=== PATIENT | female | born 1960 | race Caucasian/White ===

== ENCOUNTER 2016-06-21 15:06 | Emergency (ER) | payer BC ==
--- NOTE | 2016-06-26 16:04 | ER ---
ADMIT: 06/21/2016 RM/LOC: ER [facility] MR#: [id number] [facility] [address] [place] [id number] RADHA LOTT [address] [place] [id number] Emergency Room Report SEX: F AGE: 55 : 1960 DATE: 06/21/2016 BRIEF ADDENDUM: Please see my T-sheet for complete review of systems, past medical history, and physical exam. CHIEF COMPLAINT: Back pain. HISTORY OF PRESENT ILLNESS: This is a pleasant 55-year-old female, who presents to us with a day's duration of some upper back and chest pain. The patient states she underwent a wound debridement yesterday with Dr. Humberto montoya in [place] for some complications of an Achilles tendon repair. She is being followed with Dr. Cristobal for some wound infection, and this has failed to heal over the last couple months. She states that she underwent general anesthesia yesterday and tolerated this well. Upon returning home last night, she began having some upper back pain that she feels radiates anteriorly into her chest. She is in a moderate amount of pain rating it as a 5/10. Worse with movement. Says her Percocet is not controlling this pain. Denies any fever, chills, nausea, vomiting, lightheadedness, dizziness, numbness, or weakness. Does have some shortness of breath when she lays flat. She is currently on Nasalid and Percocet. COURSE IN THE EMERGENCY ROOM: The patient was seen and examined. She is in no acute distress. She is afebrile and nontoxic. She does have a dressing applied to the left foot secondary to the debridement yesterday. She has some tenderness to the upper chest, very mild as well as the upper back posteriorly. Breath sounds are normal bilateral. No wheezes, rales, or rhonchi. No obvious ecchymosis. She does have some tenderness in the paravertebral musculature. Abdomen is soft and nontender. She is neurovascularly intact distally in the extremities. I did get a chest x-ray, negative for any acute process. Basic labs; white count of 15.5, hemoglobin 14.3, hematocrit 44.6, and platelets 226. Sodium 143, potassium 4.1, CO2 of 27, BUN 14, and creatinine 1.0. Liver enzymes within normal limits. I did get a troponin on her, it was less than 0.015. D-dimer was 0.31. Given the fact that her labs look appropriate, no evidence of PE or acute coronary syndrome at this time, I did recommend to continue conservative treatment with anti- inflammatories and muscle relaxers. I thought this was secondary to some operative positioning on the table causing some muscle spasm and tenderness in ADMIT: 06/21/2016 RM/LOC: [facility] MR#: [id number] [address] [place] [id number] OREN RADHA L [address] [place] [address] Emergency Room Report SEX: F AGE: 55 : 1960 her back. IMPRESSION: Chest wall pain. DISPOSITION: The patient was provided a script for Flexeril 5 mg 1 tab p.o. t.i.d. for 5 days as well as naproxen 500 mg p.o. b.i.d. with foods x5 days. She is to apply ice or heat as needed for pain. Follow up with Dr. Cristobal and Dr. Paul as scheduled. Certainly return with any worsening signs or symptoms of high fevers, shortness of breath, chest pain not controlled with her pain medications. Increase fluids. Activity as tolerated. Questions sought and answered to best of my ability and to the patient's satisfaction. Discharged in stable condition. GENIE Saini / Milo Espinal MD / maria de jesus JOB #: [id number] CC: Milo Espinal MD, Attending Physician Gladis Chaudhary MD, Family Physician
== END 2016-06-21 17:40 | disposition home or self-care (01) ==
LOC: ER 15:06
DX: R07.89 Other chest pain (principal); Z90.49 Acquired absence of other specified parts of digestive tract; Z90.710 Acquired absence of both cervix and uterus; Z85.41 Personal history of malignant neoplasm of cervix uteri; Z88.0 Allergy status to penicillin

== ENCOUNTER → 2016-07-30 | Outpatient (CLI) | payer BC | END | disposition home or self-care (01) | LOC: CARD 08:49 | DX: Z45.2 Encounter for adjustment and management of vascular access device (principal) ==